=== PATIENT | male | born 1960 ===

== ENCOUNTER 2016-11-13 12:17 | Emergency (ER) | payer OTHER ==
[2016-11-13 12:18] VITALS: BMI 33.4
[2016-11-13 12:22] VITALS: BP 130/80; PULSE 79; TEMP 97.6; O2SAT 97
[2016-11-13 13:24] LABS: BASO # 0.1 K/uL (0.0-0.2); BASO % 1.3 % (0.0-2.0); EOS # 0.1 K/uL (0.0-0.7); EOS % 0.7 % (0.0-4.0); HEMATOCRIT 41.7 % (35.0-51.0); LYMPH # 2.5 K/uL (1.0-4.3); LYMPH % 31.7 % (20.0-40.0); MEAN CELL VOLUME 87.8 fl (80.0-94.0); MEAN CORPUSCULAR HEMOGLOBIN 30.3 pg (27.0-31.0); MEAN CORPUSCULAR HGB CONC 34.6 g/dL (33.0-37.0); MEAN PLATELET VOLUME 7.4 fl (7.2-11.7); MONO # 0.6 K/uL (0.0-0.8); MONO % 7.9 % (0.0-10.0); NEUT # 4.6 K/uL (1.8-7.0); NEUT % 58.4 % (50.0-75.0); NRBC % 0.1 % (0.0-0.0); RED CELL DISTRIBUTION WIDTH 13.7 % (11.5-14.5); WHITE BLOOD COUNT 7.9 K/uL (4.8-10.8)
[2016-11-13 13:49] LABS: PARTIAL THROMBOPLASTIN TIME 25.9 SECONDS (23.3-32.5)
[2016-11-13 13:52] LABS: ALKALINE PHOSPHATASE 99 U/L (38-126); ALT/SGPT 81 U/L (21-72); AST/SGOT 72 U/L (17-59); BILIRUBIN,TOTAL 0.7 mg/dl (0.2-1.3); BLOOD UREA NITROGEN 9 mg/dl (9-20); CALCIUM 9.5 mg/dL (8.4-10.2); CARBON DIOXIDE 26 mmol/L (22-30); CHLORIDE 104 mmol/L (98-107); GFR AFRICAN-AMERICAN > 60; GLUCOSE,RANDOM 94 mg/dL (75-110); SODIUM 144 mmol/l (132-148); TOTAL PROTEIN 7.7 G/DL (6.3-8.2)
--- NOTE | 2016-11-13 13:53 | ED PDOC ---
HPI: General Adult Time Seen by Provider: 11/13/16 12:19 Chief Complaint (Nursing): Abdominal Pain Chief Complaint (Provider): bloody stool History Per: Patient History/Exam Limitations: no limitations Onset/Duration Of Symptoms: Intermittent Episodes (ongoing for several years ) Have you had recent travel within the past 21 days to any of the following countries: [place], [place], [place] or [place]?: No Additional Complaint(s): Pt is a 56 year old male, with a previous medical history of hiatal hernia, cholecystectomy and hypercholesterolemia, who presents to the ED with complaints of blood in his stool ongoing for the past 2 days. Pt states this happens (blood in stool) every month a month for the past "several years" but resolves spontaneously after 1 day usually. Pt denies any nausea, vomiting, abdominal pain or fevers. Of note, pt reports having cholecystectomy done in August of 2016. 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 Pt with a hx of hemorrhoids and even had hemorrhoid surgery in 2002. PMD: Dr. Romero but is changing Past Medical History Reviewed: Historical Data, Nursing Documentation, Vital Signs Vital Signs: Last Vital Signs Temp 97.6 F 11/13/16 12:22 Pulse 79 11/13/16 12:22 Resp BP 130/80 11/13/16 12:22 Pulse Ox 97 11/13/16 14:32 - Medical History PMH: Back Problems, Gall Bladder Disease (Gallstones), Hiatal Hernia, Hypercholesterolemia Denies: Chronic Kidney Disease Other PMH: Hemorrohids - Surgical History Surgical History: Appendectomy, Cholecystectomy (August 2016), Hernia Repair ( inguinal) Other surgeries: Hemorrhoid surgery - Family History Family History: States: Other Other Family History: Leukemia - Social History Current smoker - smoking cessation education provided: No Alcohol: Social Drugs: Denies - Home Medications Home Medications: Ambulatory Orders Medication Instructions Recorded Docusate [Colace] 1 tab PO TID #90 cap 11/13/16 - Allergies Allergies/Adverse Reactions: Allergies Allergy/AdvReac Type Severity Reaction Status Date / Time No Known Allergies Allergy Verified 09/01/16 04:20 Review of Systems ROS Statement: Except As Marked, All Systems Reviewed And Found Negative Gastrointestinal: Positive for: Hematochezia. Negative for: Nausea, Vomiting, Abdominal Pain, Diarrhea, Rectal Pain Physical Exam - Reviewed Nursing Documentation Reviewed: Yes Vital Signs Reviewed: Yes - Physical Exam Appears: Positive for: Well, Non-toxic, No Acute Distress Head Exam: Positive for: ATRAUMATIC, NORMAL INSPECTION, NORMOCEPHALIC Skin: Positive for: Normal Color, Warm, Dry. Negative for: Pallor Eye Exam: Positive for: Normal appearance Neck: Positive for: Normal Cardiovascular/Chest: Positive for: Regular Rate, Rhythm Respiratory: Positive for: Normal Breath Sounds Gastrointestinal/Abdominal: Positive for: Normal Exam, Bowel Sounds, Soft. Negative for: Tenderness Back: Positive for: Normal Inspection Rectal: Positive for: Other (guaicc positive (control also positive)). Negative for: Hemorrhoids Extremity: Positive for: Normal ROM Neurologic/Psych: Positive for: Alert, Oriented. Negative for: Motor/Sensory Deficits - Laboratory Results Result Diagrams: 11/13/16 13:20 11/13/16 13:20 - ECG O2 Sat by Pulse Oximetry: 97 Medical Decision Making Medical Decision Making: Initial Impression: Rectal Bleeding (and hx of hemorrhoids) (in contrast to nursing, pt does not have RLQ pain) Likely from hemorrhoids; however, colon disease is a possibility too. Pt states he has a referral for a colonoscopy and states he will arrange for this soon. Initial Plan: Will check h/h to make sure blood loss not significant Scribe Attestation: Documented by Mally To, acting as a scribe for Wang Weber D.O. Provider Scribe Attestation: All medical record entries made by the Scribe were at my direction and personally dictated by me. I have reviewed the chart and agree that the record accurately reflects my personal performance of the history, physical exam, medical decision making, and the department course for this patient. I have also personally directed, reviewed, and agree with the discharge instructions and disposition. Disposition - Clinical Impression Clinical Impression: Rectal bleeding - Patient ED Disposition Is Patient to be Admitted: No Counseled Patient/Family Regarding: Studies Performed, Diagnosis, Need For Followup, Rx Given - Disposition Referrals: Gianfranco Caba MD [Staff Provider] - Disposition: Routine/Home Disposition Time: 14:09 Condition: STABLE Additional Instructions: Mr. Cordoba, thank you for letting us take care of you today. Return to the ER if your symptoms worsen, or if any problems. Take the medication listed below as prescribed. When you are having a bowel movement, do not sit on the toilet for too long. Drink lots of fluids (to help avoid constipation). You have a referral for a colonoscopy. It is extremely important that you get your colonoscopy. Your rectal bleeding may be due to hemorrhoids; however, the colonoscopy needs to be performed to make sure that the rectal bleeding is not from a more serious problem. Follow up with your doctor next week. If you are in a need of a new doctor, that is also fine--please call Dr. Gianfranco Caba at the phone number listed below to make an appointment. Prescriptions: Docusate [Colace] 1 tab PO TID #90 cap Instructions: Hemorrhoids (ED), Rectal Bleeding (ED) Print Language: AUSTRALIAN
[2016-11-13 14:16] LABS: RBC URINE < 1 /hpf (0-3); URINE BILIRUBIN NEGATIVE (NEGATIVE); URINE BLOOD NEGATIVE (NEGATIVE); URINE COLOR YELLOW (YELLOW); URINE GLUCOSE (UA) NEG (Normal); URINE KETONE NEGATIVE (NEGATIVE); URINE LEUKOCYTE ESTERASE NEG Leu/uL (Negative); URINE PROTEIN NEGATIVE (NEGATIVE); URINE UROBILINOGEN 0.2-1.0 mg/dL (0.2-1.0); WBC URINE < 1 /hpf (0-5)
== END 2016-11-13 14:27 | disposition home or self-care (01) ==
LOC: H.ER 12:17
DX: K64.9 Unspecified hemorrhoids (principal)

== ENCOUNTER 2017-03-14 16:07 | Emergency (ER) | payer OTHER ==
[2017-03-14 16:07] VITALS: BMI 33.4
[2017-03-14] MEDS ORDERED: Sodium Chloride 0.9% 1,000 ML IV STA (16:24)
[2017-03-14 16:57] LABS: BASO # 0.1 K/uL (0.0-0.2); BASO % 0.8 % (0.0-2.0); EOS % 0.1 % (0.0-4.0); HEMATOCRIT 42.4 % (35.0-51.0); LYMPH # 1.7 K/uL (1.0-4.3); LYMPH % 16.6 % (20.0-40.0); MEAN CELL VOLUME 88.3 fl (80.0-94.0); MEAN CORPUSCULAR HEMOGLOBIN 31.3 pg (27.0-31.0); MEAN CORPUSCULAR HGB CONC 35.4 g/dL (33.0-37.0); MEAN PLATELET VOLUME 7.6 fl (7.2-11.7); MONO # 0.8 K/uL (0.0-0.8); MONO % 7.2 % (0.0-10.0); NEUT # 7.9 K/uL (1.8-7.0); NEUT % 75.3 % (50.0-75.0); RED CELL DISTRIBUTION WIDTH 13.4 % (11.5-14.5); WHITE BLOOD COUNT 10.5 K/uL (4.8-10.8)
[2017-03-14 17:12] LABS: PARTIAL THROMBOPLASTIN TIME 31.1 Seconds (25.6-37.1)
[2017-03-14 17:13] LABS: ALB/GLOB RATIO 1.2 (1.0-2.1); ALCOHOL SERUM < 10 mg/dl (0-10); ALKALINE PHOSPHATASE 101 U/L (38-126); ALT/SGPT 78 U/L (21-72); AST/SGOT 50 U/L (17-59); BILIRUBIN,TOTAL 0.6 mg/dl (0.2-1.3); BLOOD UREA NITROGEN 6 mg/dl (9-20); CALCIUM 9.3 mg/dL (8.4-10.2); CARBON DIOXIDE 26 mmol/L (22-30); CHLORIDE 102 mmol/L (98-107); GFR AFRICAN-AMERICAN > 60; GLUCOSE,RANDOM 96 mg/dL (75-110); LIPASE 80 U/L (23-300); SODIUM 140 mmol/l (132-148); TOTAL PROTEIN 8.1 G/DL (6.3-8.2)
--- NOTE | 2017-03-14 17:21 | ED PDOC ---
HPI: Abdomen Time Seen by Provider: 03/14/17 16:16 Chief Complaint (Nursing): Abdominal Pain Chief Complaint (Provider): Abdominal pain History Per: Patient History/Exam Limitations: no limitations Onset/Duration Of Symptoms: Days (1) Outside of [place] travel?: No Current Symptoms Are (Timing): Still Present Additional Complaint(s): The patient is a 56yo male, presents to the ED for evaluation of right sided abdominal pain, present for one day with associated one episode of non-bloody vomiting. Patient states he drank 24 bottles of beer in the past two days. He denies any associated fever or diarrhea. Of note, patient has surgical history of cholecystectomy, appendectomy and an inguinal hernia. Also c/o R sided throat pain X 1 day, no difficulty swallowing, no SOB, no fever. Past Medical History Reviewed: Historical Data, Nursing Documentation, Vital Signs Vital Signs: Last Vital Signs Temp 99.0 F 03/14/17 16:11 Pulse 94 H 03/14/17 18:54 Resp 22 03/14/17 16:11 BP 142/100 H 03/14/17 16:11 Pulse Ox 99 03/14/17 18:54 - Medical History PMH: Back Problems, Gall Bladder Disease (Gallstones), Hiatal Hernia, Hypercholesterolemia Denies: Chronic Kidney Disease - Surgical History Surgical History: Appendectomy, Cholecystectomy (August 2016), Hernia Repair ( inguinal) - Family History Family History: States: Unknown Family Hx - Home Medications Home Medications: Ambulatory Orders Medication Instructions Recorded Docusate [Colace] 1 tab PO TID #90 cap 11/13/16 Azithromycin [Zithromax] 500 mg PO DAILY #4 tab 03/14/17 Ibuprofen [Motrin] 600 mg PO Q6H PRN #20 tab 03/14/17 Ondansetron ODT [Zofran ODT] 4 mg PO Q8H PRN #20 odt 03/14/17 - Allergies Allergies/Adverse Reactions: Allergies Allergy/AdvReac Type Severity Reaction Status Date / Time No Known Allergies Allergy Verified 09/01/16 04:20 Review of Systems ROS Statement: Except As Marked, All Systems Reviewed And Found Negative Constitutional: Negative for: Fever Gastrointestinal: Positive for: Nausea, Vomiting, Abdominal Pain. Negative for : Diarrhea Physical Exam - Reviewed Nursing Documentation Reviewed: Yes Vital Signs Reviewed: Yes - Physical Exam Appears: Positive for: Well, Non-toxic, No Acute Distress Head Exam: Positive for: ATRAUMATIC, NORMAL INSPECTION, NORMOCEPHALIC Skin: Positive for: Normal Color, Warm, DRY Eye Exam: Positive for: EOMI, Normal appearance, PERRL ENT: Positive for: Normal ENT Inspection, Pharynx Is (Clear), Pharyngeal Erythema, Tonsillar Exudate (R). Negative for: Nasal Congestion, Tonsillar Swelling Neck: Positive for: Normal, Supple Cardiovascular/Chest: Positive for: Regular Rate, Rhythm Respiratory: Positive for: Normal Breath Sounds. Negative for: Respiratory Distress Gastrointestinal/Abdominal: Positive for: Soft, Tenderness (right upper and lower quadrant tenderness). Negative for: Mass, Guarding, Rebound Back: Positive for: Normal Inspection Extremity: Positive for: Normal ROM. Negative for: Deformity, Swelling Neurologic/Psych: Positive for: Alert, Oriented. Negative for: Motor/Sensory Deficits - Laboratory Results Result Diagrams: 03/14/17 16:50 03/14/17 16:50 - ECG ECG: Positive for: Interpreted By Me, Viewed By Me ECG Rhythm: Positive for: Normal QRS, Sinus Rhythm. Negative for: ST/T Changes Rate: 94 O2 Sat by Pulse Oximetry: 99 (RA) Pulse Ox Interpretation: Normal Medical Decision Making Medical Decision Making: Time: 1624 Impression: Pancreatitis, colitis Plan: -- CT AP w/ IV contrast -- IV Fluids -- Morphine 2mg IV -- Zofran 4mg IV Reassess Time: 1843 CT AP IMPRESSION: No evidence of acute pathology in the abdomen and pelvis. Mild urinary bladder wall thickening. Patient reports improvement of his symptoms. Patient informed to follow up with PCP and to return to ED if symptoms return or new symptoms develop. Patient expresses understanding and is agreeable. Stable for discharge home. Scribe Attestation: Documented by Edna Pierce acting as a scribe for Mally Hernández MD. Provider Attestation: All medical record entries made by the Scribe were at my direction and personally dictated by me. I have reviewed the chart and agree that the record accurately reflects my personal performance of the history, physical exam, medical decision making, and the department course for this patient. I have also personally directed, reviewed, and agree with the discharge instructions and disposition. Disposition - Clinical Impression Clinical Impression: Abdominal pain, Pharyngitis Counseled Patient/Family Regarding: Studies Performed, Diagnosis, Need For Followup, Rx Given - Disposition Referrals: [facility] [place] [Outside] [facility] [Outside] Disposition: Routine/Home Disposition Time: 18:53 Condition: STABLE Prescriptions: Azithromycin [Zithromax] 500 mg PO DAILY #4 tab Ibuprofen [Motrin] 600 mg PO Q6H PRN #20 tab PRN Reason: Pain, Moderate (4-7) Ondansetron ODT [Zofran ODT] 4 mg PO Q8H PRN #20 odt PRN Reason: Nausea/Vomiting Instructions: Pharyngitis (ED), Acute Abdominal Pain (ED) Forms: [facility] (Kittitian) Print Language: GREENLANDIC
[2017-03-14 17:39] LABS: RBC URINE < 1 /hpf (0-3); URINE BILIRUBIN NEGATIVE (NEGATIVE); URINE BLOOD SMALL (NEGATIVE); URINE COLOR STRAW (YELLOW); URINE GLUCOSE (UA) NEG (Normal); URINE KETONE NEGATIVE (NEGATIVE); URINE LEUKOCYTE ESTERASE NEG Leu/uL (Negative); URINE PROTEIN NEGATIVE (NEGATIVE); URINE UROBILINOGEN 0.2-1.0 mg/dL (0.2-1.0); WBC URINE 1 /hpf (0-5)
[2017-03-14] MEDS ORDERED: Iohexol 300 100 ML IJ ONE (18:17)
[2017-03-14] MEDS ORDERED: Sodium Chloride 0.9% 50 ML IV ONE (18:17)
--- NOTE | 2017-03-14 18:45 | CT ---
PROCEDURE: CT Abdomen and Pelvis with contrast HISTORY: R sided abd pain, h/o cholecystectomy/appendectomy COMPARISON: Comparison is made to 09/01/2016 TECHNIQUE: Contrast dose: 95 cc of Omnipaque 300. Axial and reformatted coronal and sagittal CT images of the abdomen and pelvis were obtained after IV contrast administration. No oral contrast was given. Radiation dose: Total exam DLP = 1118.02 mGy-cm. This CT exam was performed using one or more of the following dose reduction techniques: Automated exposure control, adjustment of the mA and/or kV according to patient size, and/or use of iterative reconstruction technique. FINDINGS: LOWER THORAX: No evidence of acute pathology. Mild cardiomegaly. LIVER: Mild hepatomegaly and moderate steatosis are again seen. GALLBLADDER AND BILE DUCTS: Status post cholecystectomy. PANCREAS: Unremarkable. No gross lesion or ductal dilatation. SPLEEN: Unremarkable. ADRENALS: Unremarkable. No mass. KIDNEYS AND URETERS: Unremarkable. No hydronephrosis. No solid mass. VASCULATURE: Unremarkable. No aortic aneurysm. BOWEL: Unremarkable. No obstruction. No gross mural thickening. Few scattered colonic diverticulosis seen without evidence of diverticulitis. APPENDIX: The appendix is not visualized consistent with history of appendix HANNAH. PERITONEUM: Unremarkable. No free fluid. No free air. LYMPH NODES: Unremarkable. No enlarged lymph nodes. BLADDER: Mild urinary bladder wall thickening. REPRODUCTIVE: Unremarkable. BONES: No acute fracture. OTHER FINDINGS: None. IMPRESSION: No evidence of acute pathology in the abdomen and pelvis. Mild urinary bladder wall thickening.
[2017-03-14 19:15] VITALS: BP 132/74; PULSE 83; RESP 19; TEMP 98.3; O2SAT 98
--- NOTE | 2017-03-15 11:26 | CARD ---
APPROVED REPORT EKG Measurement Heart [id number] <Conclusion> Normal sinus rhythm Normal ECG
== END 2017-03-14 19:14 | disposition home or self-care (01) ==
LOC: H.ER 16:07
DX: R10.9 Unspecified abdominal pain (principal); J02.9 Acute pharyngitis, unspecified
CPT/HCPCS: 74177; 80053; 80320; 81003; 83690; 85025; 85610; 85730; 93005; 96374; 96375; 99284; J2270; J2405; J7040; Q9967

== ENCOUNTER 2017-07-15 05:36 | Emergency (ER) | payer OTHER ==
[2017-07-15 05:36] VITALS: BMI 34.3
[2017-07-15 05:49] VITALS: BP 119/88; PULSE 71; RESP 18; TEMP 98; O2SAT 98
--- NOTE | 2017-07-15 06:11 | ED PDOC ---
HPI: Skin/Bite Injury Time Seen by Provider: 07/15/17 05:53 Chief Complaint (Nursing): Abnormal Skin Integrity Chief Complaint (Provider): Abnormal Skin Integrity History Per: Patient History/Exam Limitations: no limitations Onset/Duration Of Symptoms: Days (x1) Current Symptoms Are (Timing): Still Present Additional Complaint(s): 56 year old male who presents to the emergency department with a complaint of generalized itchy skin ongoing for 1 day. Denied any further medical complaints. Patient stated he had been using Benadryl with little relief symptoms. PMD: Elizabeth Sanchez MD Past Medical History Reviewed: Historical Data, Nursing Documentation, Vital Signs Vital Signs: Last Vital Signs Temp 98.0 F 07/15/17 05:45 Pulse 71 07/15/17 05:45 Resp 18 07/15/17 05:45 BP 119/88 07/15/17 05:45 Pulse Ox 98 07/15/17 06:13 - Medical History PMH: Back Problems, Gall Bladder Disease (Gallstones), Hiatal Hernia, Hypercholesterolemia Denies: Chronic Kidney Disease - Surgical History Surgical History: Appendectomy, Cholecystectomy (August 2016), Hernia Repair ( inguinal) - Family History Family History: States: Unknown Family Hx - Home Medications Home Medications: Ambulatory Orders Medication Instructions Recorded Docusate [Colace] 1 tab PO TID #90 cap 11/13/16 Azithromycin [Zithromax] 500 mg PO DAILY #4 tab 03/14/17 Ibuprofen [Motrin] 600 mg PO Q6H PRN #20 tab 03/14/17 Ondansetron ODT [Zofran ODT] 4 mg PO Q8H PRN #20 odt 03/14/17 Menthol/Colloidal Oatmeal [Eucerin 200 ml TP BID #1 lotion 07/15/17 Calm Itch-Relief Lot] - Allergies Allergies/Adverse Reactions: Allergies Allergy/AdvReac Type Severity Reaction Status Date / Time No Known Allergies Allergy Verified 07/15/17 05:45 Review of Systems ROS Statement: Except As Marked, All Systems Reviewed And Found Negative Skin: Positive for: Other (diffuse; dry) Physical Exam - Reviewed Nursing Documentation Reviewed: Yes Vital Signs Reviewed: Yes - Physical Exam Appears: Positive for: Well, Non-toxic, No Acute Distress Head Exam: Positive for: ATRAUMATIC, NORMAL INSPECTION, NORMOCEPHALIC Skin: Positive for: Dry ([place]/back. no moisture noted). Negative for: Normal Color Cardiovascular/Chest: Positive for: Regular Rate, Rhythm, Chest Non Tender Respiratory: Positive for: Normal Breath Sounds. Negative for: Decreased Breath Sounds, Respiratory Distress Neurologic/Psych: Positive for: Alert (x3), Oriented - ECG O2 Sat by Pulse Oximetry: 98 (RA) Pulse Ox Interpretation: Normal Medical Decision Making Medical Decision Making: Initial Impression: Dry skin Scribe Attestation: Documented by Silvia Kwon, acting as a scribe for Desmond Gabriel MD. Provider Scribe Attestation: All medical record entries made by the Scribe were at my direction and personally dictated by me. I have reviewed the chart and agree that the record accurately reflects my personal performance of the history, physical exam, medical decision making, and the department course for this patient. I have also personally directed, reviewed, and agree with the discharge instructions and disposition. Disposition - Clinical Impression Clinical Impression: Dry skin - Disposition Referrals: [facility] [Outside] Disposition Time: 06:00 Condition: STABLE Prescriptions: Menthol/Colloidal Oatmeal [Eucerin Calm Itch-Relief Lot] 200 ml TP BID #1 lotion Instructions: Dermatitis (ED) Forms: [facility] ([place] Citizen) Print Language: BENINESE
== END 2017-07-15 06:00 | disposition home or self-care (01) ==
LOC: H.ER 05:36
DX: L30.9 Dermatitis, unspecified (principal); E78.00 Pure hypercholesterolemia, unspecified

== ENCOUNTER 2017-08-05 08:32 | Emergency (ER) | payer OTHER ==
[2017-08-05 09:07] VITALS: BP 126/81; PULSE 72; RESP 18; TEMP 98.9; O2SAT 99
[2017-08-05 09:10] VITALS: BMI 34.2
[2017-08-05] MEDS ORDERED: Promethazine/Cod 6.25mg-10mg/5ml Syr UD PO STA (09:34)
--- NOTE | 2017-08-05 09:50 | ED PDOC ---
HPI: CCC, URI, Sore Throat Time Seen by Provider: 08/05/17 09:04 Chief Complaint (Nursing): Flu-like Symptoms Chief Complaint (Provider): Flu-like Symptoms History Per: Patient History/Exam Limitations: no limitations Onset/Duration Of Symptoms: Days (3 days) Current Symptoms Are (Timing): Still Present Additional Complaint(s): 56 year old male presents to the emergency department with a complaint of a fever, cough, body aches, and congestion x3 days. States that he cannot sleep at night. Reports taking Theraflu, Aleve, and Robitussin without relief. Denies vomiting, diarrhea, or chest pain. Past Medical History Reviewed: Historical Data, Nursing Documentation, Vital Signs Vital Signs: Last Vital Signs Temp 98.9 F 08/05/17 09:06 Pulse 72 08/05/17 09:06 Resp 18 08/05/17 09:06 BP 126/81 08/05/17 09:06 Pulse Ox 99 08/05/17 09:52 - Medical History PMH: Back Problems, Gall Bladder Disease (Gallstones), Hiatal Hernia, Hypercholesterolemia Denies: Chronic Kidney Disease - Surgical History Surgical History: Appendectomy, Cholecystectomy (August 2016), Hernia Repair ( inguinal) - Family History Family History: States: Unknown Family Hx - Living Arrangements Living Arrangements: With Family - Social History Current smoker - smoking cessation education provided: No Alcohol: None Drugs: Denies - Home Medications Home Medications: Ambulatory Orders Medication Instructions Recorded Diphenhydra/Phenyleph/Acetamin 1 packet PO DAILY 08/03/17 [Theraflu Expressmax Cold Nt Lq] Azithromycin [Z-Saroj] 250 mg PO ASDIR #6 tab 08/05/17 Benzonatate [Tessalon Perles] 100 mg PO TID PRN #15 sgl 08/05/17 Oseltamivir [Tamiflu] 75 mg PO BID #10 cap 08/05/17 - Allergies Allergies/Adverse Reactions: Allergies Allergy/AdvReac Type Severity Reaction Status Date / Time No Known Allergies Allergy Verified 08/03/17 10:20 Review of Systems ROS Statement: Except As Marked, All Systems Reviewed And Found Negative (As per HPI, otherwise negative) Constitutional: Positive for: Fever, Other (Body aches) ENT: Positive for: Nose Congestion Cardiovascular: Negative for: Chest Pain Respiratory: Positive for: Cough. Negative for: Shortness of Breath Gastrointestinal: Negative for: Vomiting, Diarrhea Physical Exam - Reviewed Nursing Documentation Reviewed: Yes Vital Signs Reviewed: Yes - Physical Exam Appears: Positive for: Non-toxic, No Acute Distress Head Exam: Positive for: NORMAL INSPECTION, NORMOCEPHALIC Skin: Positive for: Normal Color, Warm, Dry Eye Exam: Positive for: EOMI ENT: Positive for: Normal ENT Inspection Cardiovascular/Chest: Positive for: Regular Rate, Rhythm. Negative for: Bradycardia Respiratory: Positive for: Normal Breath Sounds. Negative for: Accessory Muscle Use, Wheezing, Respiratory Distress Gastrointestinal/Abdominal: Positive for: Normal Exam, Soft. Negative for: Tenderness Back: Positive for: Normal Inspection. Negative for: L CVA Tenderness, R CVA Tenderness Extremity: Positive for: Normal ROM. Negative for: Pedal Edema Neurologic/Psych: Positive for: Alert, Oriented (x3) - ECG O2 Sat by Pulse Oximetry: 99 (RA) Pulse Ox Interpretation: Normal - Radiology X-Ray: Interpreted by Me, Viewed By Me X-Ray Interpretation: Infiltrates (?) Medical Decision Making Medical Decision Making: Time: 933 Initial Impression: Upper respiratory infection (URI) rule out pneumonia Initial Plan: --Toradol 30 mg IM --Promethazine/Codeine 5 ml PO --Influenza A B --Chest x-ray --Reevaluation Scribe~Attestation: Documented by Delaney Matias, acting as a scribe for Malik Bermudez MD. Provider Scribe~Attestation: All medical record entries made by the Scribe were at my direction and personally dictated by me. I have reviewed the chart and agree that the record accurately reflects my personal performance of the history, physical exam, medical decision making, and the department course for this patient. I have also personally directed, reviewed, and agree with the discharge instructions and disposition. Disposition - Clinical Impression Clinical Impression: Influenza, Bronchitis - Patient ED Disposition Is Patient to be Admitted: No Doctor Will See Patient In The: Office Counseled Patient/Family Regarding: Studies Performed, Diagnosis, Need For Followup - Disposition Referrals: [facility] [Outside] Disposition: Routine/Home Disposition Time: 11:41 Condition: GOOD Additional Instructions: Take your medications as instructed. Follow up with your PCP in 2-3 days. Prescriptions: Azithromycin [Z-Saroj] 250 mg PO ASDIR #6 tab Benzonatate [Tessalon Perles] 100 mg PO TID PRN #15 sgl PRN Reason: Cough Oseltamivir [Tamiflu] 75 mg PO BID #10 cap Instructions: Influenza (ED) Print Language: YORUBA
--- NOTE | 2017-08-05 14:39 | RAD ---
HISTORY: fever cough COMPARISON: I fatou TECHNIQUE: Chest PA and lateral FINDINGS: LUNGS: No active pulmonary disease. PLEURA: No significant pleural effusion identified. No pneumothorax apparent. CARDIOVASCULAR: Normal. OSSEOUS STRUCTURES: No significant abnormalities. VISUALIZED UPPER ABDOMEN: Normal. OTHER FINDINGS: Enlargement of the left hilum best seen on the PA view. Elective followup recommended. IMPRESSION: No active pulmonary disease. Enlarged left hilum. Elective followup recommended. Notification protocol employed per institutional policies and procedures.
== END 2017-08-05 11:53 | disposition home or self-care (01) ==
LOC: H.ER 08:32 → SUPCPDRO 08:32 → H.ER 11:53
DX: J11.1 Influenza due to unidentified influenza virus with other respiratory manifestations (principal); J40 Bronchitis, not specified as acute or chronic; E78.00 Pure hypercholesterolemia, unspecified
CPT/HCPCS: 71046; 87804; 96372; 99283; J1885

== ENCOUNTER 2017-08-28 07:04 | Emergency (ER) | payer OTHER ==
[2017-08-28 07:04] VITALS: BMI 34.2
[2017-08-28 07:31] VITALS: RESP 18; TEMP 98; O2SAT 98
--- NOTE | 2017-08-28 08:04 | ED PDOC ---
HPI: Back Time Seen by Provider: 08/28/17 07:27 Chief Complaint (Nursing): Back Pain Chief Complaint (Provider): Back Pain History Per: Patient History/Exam Limitations: no limitations Onset/Duration Of Symptoms: Days (x 1) Current Symptoms Are (Timing): Still Present Additional History Per: Family () Additional Complaint(s): Yobani is a 57 y/o male with a history of back problems who presents to the ED complaining of back pain that started yesterday. He denies injury or trauma, and says walking makes it tighter. He took Aleve at 6:00 today with no relief. Patient denies any other symptoms, including nausea, vomiting, fever, chills, or urinary symptoms. 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 PMD: None Provided Past Medical History Reviewed: Historical Data, Nursing Documentation, Vital Signs Vital Signs: Last Vital Signs Temp 98 F 08/28/17 07:27 Pulse 79 08/28/17 07:27 Resp 18 08/28/17 07:27 BP 129/75 08/28/17 07:27 Pulse Ox 98 08/28/17 07:27 - Medical History PMH: Back Problems, Gall Bladder Disease (Gallstones), Hiatal Hernia, Hypercholesterolemia Denies: Chronic Kidney Disease - Surgical History Surgical History: Appendectomy, Cholecystectomy (August 2016), Hernia Repair ( inguinal) - Family History Family History: States: Unknown Family Hx - Home Medications Home Medications: Ambulatory Orders Medication Instructions Recorded Diphenhydra/Phenyleph/Acetamin 1 packet PO DAILY 08/03/17 [Theraflu Expressmax Cold Nt Lq] Azithromycin [Z-Saroj] 250 mg PO ASDIR #6 tab 08/05/17 Benzonatate [Tessalon Perles] 100 mg PO TID PRN #15 sgl 08/05/17 Oseltamivir [Tamiflu] 75 mg PO BID #10 cap 08/05/17 Cyclobenzaprine [Cyclobenzaprine 10 mg PO TID #15 tab 08/28/17 HCl] Naproxen [Naprosyn] 500 mg PO BID PRN #20 tablet 08/28/17 - Allergies Allergies/Adverse Reactions: Allergies Allergy/AdvReac Type Severity Reaction Status Date / Time No Known Allergies Allergy Verified 08/03/17 10:20 Review of Systems ROS Statement: Except As Marked, All Systems Reviewed And Found Negative Constitutional: Negative for: Fever, Chills Gastrointestinal: Negative for: Nausea, Vomiting Genitourinary Male: Negative for: Dysuria, Frequency, Incontinence, Hematuria Musculoskeletal: Positive for: Back Pain Physical Exam - Reviewed Nursing Documentation Reviewed: Yes Vital Signs Reviewed: Yes - Physical Exam Appears: Positive for: Well, Non-toxic, No Acute Distress Head Exam: Positive for: ATRAUMATIC, NORMAL INSPECTION, NORMOCEPHALIC Skin: Positive for: Normal Color, Warm, Dry Neck: Positive for: Normal, Painless ROM, Supple Cardiovascular/Chest: Positive for: Regular Rate, Rhythm. Negative for: Murmur Respiratory: Positive for: Normal Breath Sounds. Negative for: Respiratory Distress Gastrointestinal/Abdominal: Positive for: Normal Exam, Bowel Sounds, Soft. Negative for: Tenderness Back: Positive for: Normal Inspection. Negative for: Other (straight leg raise) Extremity: Positive for: Normal ROM Neurologic/Psych: Positive for: Alert, Oriented - ECG O2 Sat by Pulse Oximetry: 98 (RA) Pulse Ox Interpretation: Normal Medical Decision Making Medical Decision Making: Time: 7:50 Initial Impression: Chronic Back Pain Initial Plan: --Urine Dip --Flexoril --Toradol Time: 8:55 --Urinalysis Scribe Attestation: Documented by Christopher Glass, acting as a scribe for Kimbelry Teresa MD Provider Scribe Attestation: All medical record entries made by the Scribe were at my direction and personally dictated by me. I have reviewed the chart and agree that the record accurately reflects my personal performance of the history, physical exam, medical decision making, and the department course for this patient. I have also personally directed, reviewed, and agree with the discharge instructions and disposition. Disposition - Clinical Impression Clinical Impression: Muscle spasm of back - Disposition Referrals: [facility] [place] [facility] [Outside] [facility] [Outside] [facility] [Outside] Disposition: Routine/Home Disposition Time: 10:47 Condition: STABLE Prescriptions: Cyclobenzaprine [Cyclobenzaprine HCl] 10 mg PO TID #15 tab Naproxen [Naprosyn] 500 mg PO BID PRN #20 tablet PRN Reason: Pain, Moderate (4-7) Instructions: Muscle Spasm (ED) Forms: [employer] (Estonian), [facility] ED School/Work Excuse Print Language: AUSTRIAN - POA Present On Arrival: None
[2017-08-28 10:14] LABS: SQUAMOUS EPITHIAL < 1 /hpf (0-5); URINE BACTERIA RARE (<OCC); URINE BILIRUBIN NEGATIVE (NEGATIVE); URINE BLOOD NEGATIVE (NEGATIVE); URINE CLARITY CLOUDY (Clear); URINE COLOR YELLOW (YELLOW); URINE GLUCOSE (UA) NEG (Normal); URINE HYALINE CAST 0-2 /hpf (0-2); URINE LEUKOCYTE ESTERASE NEG Leu/uL (Negative); URINE NITRATE NEGATIVE (NEGATIVE); URINE PROTEIN 30 mg/dL (NEGATIVE)
[2017-08-28 10:59] VITALS: BP 128/78; PULSE 80
== END 2017-08-28 10:59 | disposition home or self-care (01) ==
LOC: H.ER 07:04
DX: M62.830 Muscle spasm of back (principal); E78.00 Pure hypercholesterolemia, unspecified
CPT/HCPCS: 81003; 96372; 99281; J1885

== ENCOUNTER 2017-09-25 07:31 | Emergency (ER) | payer MEDICAID, OTHER ==
[2017-09-25 07:31] VITALS: BMI 34.2
[2017-09-25 07:52] VITALS: BP 133/85; PULSE 74; RESP 20; TEMP 98; O2SAT 98
--- NOTE | 2017-09-25 08:07 | ED PDOC ---
HPI: General Adult Time Seen by Provider: 09/25/17 07:36 Chief Complaint (Nursing): ENT Problem Chief Complaint (Provider): Ear decreased hearing History Per: Patient History/Exam Limitations: no limitations Onset/Duration Of Symptoms: Days (2) Current Symptoms Are (Timing): Still Present Additional Complaint(s): Pt. with decreased hearing for 2 days from right ear. No pain. Has pain to the back of lower right head, mild. No numbness, tingles, weakness, dizziness, cough, congestion, runny nose. No fever. No dyspnea. No issues to left ear. Headache not worst in his life and started gradually. Past Medical History Reviewed: Nursing Documentation, Vital Signs Vital Signs: Last Vital Signs Temp 98 F 09/25/17 07:48 Pulse 74 09/25/17 07:48 Resp 20 09/25/17 07:48 BP 133/85 09/25/17 07:48 Pulse Ox 98 09/25/17 07:48 - Medical History PMH: No Chronic Diseases Denies: Chronic Kidney Disease - Surgical History Surgical History: Appendectomy, Cholecystectomy (August 2016), Hernia Repair ( inguinal) - Family History Family History: States: Unknown Family Hx - Home Medications Home Medications: Ambulatory Orders Medication Instructions Recorded Diphenhydra/Phenyleph/Acetamin 1 packet PO DAILY 08/03/17 [Theraflu Expressmax Cold Nt Lq] Azithromycin [Z-Saroj] 250 mg PO ASDIR #6 tab 08/05/17 Benzonatate [Tessalon Perles] 100 mg PO TID PRN #15 sgl 08/05/17 Oseltamivir [Tamiflu] 75 mg PO BID #10 cap 08/05/17 Cyclobenzaprine [Cyclobenzaprine 10 mg PO TID #15 tab 08/28/17 HCl] Naproxen [Naprosyn] 500 mg PO BID PRN #20 tablet 08/28/17 Amoxicillin 500 mg PO BID 7 Days tablet 09/25/17 Ibuprofen [Motrin] 600 mg PO TID 7 Days tab 09/25/17 - Allergies Allergies/Adverse Reactions: Allergies Allergy/AdvReac Type Severity Reaction Status Date / Time No Known Allergies Allergy Verified 09/25/17 07:48 Review of Systems Constitutional: Negative for: Fever, Weakness Eyes: Negative for: Vision Change ENT: Negative for: Ear Pain, Ear Discharge, Nose Pain, Nose Discharge, Nose Congestion, Mouth Pain, Mouth Swelling, Throat Pain Cardiovascular: Negative for: Chest Pain Respiratory: Negative for: Shortness of Breath Gastrointestinal: Negative for: Nausea, Vomiting Musculoskeletal: Negative for: Neck Pain Skin: Negative for: Rash Neurological: Positive for: Headache. Negative for: Weakness, Numbness, Confusion, Altered Mental Status, Dizziness Physical Exam - Reviewed Nursing Documentation Reviewed: Yes Vital Signs Reviewed: Yes - Physical Exam Appears: Positive for: Non-toxic, No Acute Distress Head Exam: Positive for: ATRAUMATIC, NORMAL INSPECTION, NORMOCEPHALIC Skin: Positive for: Normal Color, Warm, DRY Eye Exam: Positive for: EOMI, Normal appearance, PERRL ENT: Positive for: TM Is/Are (mild erythema on R TM; no perforation), Other (no tenderness to mastoids or behind ear R; no swelling.). Negative for: Nasal Congestion, Pharyngeal Erythema, Tonsillar Exudate Neck: Positive for: Normal, Painless ROM Cardiovascular/Chest: Positive for: Regular Rate, Rhythm Respiratory: Positive for: CNT, Normal Breath Sounds Back: Positive for: Normal Inspection. Negative for: L CVA Tenderness, R CVA Tenderness Extremity: Positive for: Normal ROM. 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 Negative for: Facial Droop - ECG O2 Sat by Pulse Oximetry: 98 Pulse Ox Interpretation: Normal - Progress ED Course And Treament: 809: Stable. AAOx3. Will rx for ear infection. Pt. to fu with ENT further evaluation. Disposition - Clinical Impression Clinical Impression: Otitis media - Patient ED Disposition Is Patient to be Admitted: No Counseled Patient/Family Regarding: Diagnosis, Need For Followup, Rx Given - Disposition Referrals: Omero Hayes MD [Staff Provider] - 09/27/17 formerly [facility] [Outside] - 09/27/17 Disposition: Routine/Home Disposition Time: 08:11 Condition: STABLE Additional Instructions: Return if not better in 3 days. Prescriptions: Amoxicillin 500 mg PO BID 7 Days tablet Ibuprofen [Motrin] 600 mg PO TID 7 Days tab Instructions: Ear Infections (Otitis Media) Print Language: MALAY
== END 2017-09-25 08:44 | disposition home or self-care (01) ==
LOC: H.ER 07:31
DX: H66.91 Otitis media, unspecified, right ear (principal)

== ENCOUNTER 2017-09-29 11:32 | Emergency (ER) | payer MEDICAID ==
[2017-09-29 11:32] VITALS: BMI 34.2
[2017-09-29 11:56] VITALS: RESP 18; O2SAT 100
[2017-09-29] MEDS ORDERED: Sodium Chloride 0.9% 1,000 ML IV STA (12:58)
--- NOTE | 2017-09-29 13:34 | ED PDOC ---
HPI: General Adult Time Seen by Provider: 09/29/17 11:58 Chief Complaint (Nursing): Headache History Per: Patient Additional Complaint(s): Pt. states for the past 2 weeks he's had a constant gradual onset R occipital headache. States initially headache was associated with R ear pain and hearing changes. He was seen in ED at the onset of symptoms and prescribed Amoxicillin and Ibuprofen which resolved earache and hearing changes but headache persists. Denies head injury, N/V, fever, neck pain, numbness, tingling, sudden onset of headache, hx of headaches. Past Medical History Reviewed: Historical Data, Nursing Documentation, Vital Signs Vital Signs: Last Vital Signs Temp 97 F L 09/29/17 11:54 Pulse 79 09/29/17 11:54 Resp 18 09/29/17 11:54 BP 125/84 09/29/17 11:54 Pulse Ox 100 09/29/17 13:35 - Medical History PMH: Back Problems, Gall Bladder Disease (Gallstones), Hiatal Hernia, Hypercholesterolemia Denies: Chronic Kidney Disease - Surgical History Surgical History: Appendectomy, Cholecystectomy (August 2016), Hernia Repair ( inguinal) - Family History Family History: States: No Known Family Hx - Home Medications Home Medications: Ambulatory Orders Medication Instructions Recorded Diphenhydra/Phenyleph/Acetamin 1 packet PO DAILY 08/03/17 [Theraflu Expressmax Cold Nt Lq] Azithromycin [Z-Saroj] 250 mg PO ASDIR #6 tab 08/05/17 Benzonatate [Tessalon Perles] 100 mg PO TID PRN #15 sgl 08/05/17 Oseltamivir [Tamiflu] 75 mg PO BID #10 cap 08/05/17 Cyclobenzaprine [Cyclobenzaprine 10 mg PO TID #15 tab 08/28/17 HCl] Naproxen [Naprosyn] 500 mg PO BID PRN #20 tablet 08/28/17 Amoxicillin 500 mg PO BID 7 Days tablet 09/25/17 Ibuprofen [Motrin] 600 mg PO TID 7 Days tab 09/25/17 Metoclopramide [Reglan] 10 mg PO TID PRN #15 tab 09/29/17 Naproxen [Naprosyn] 500 mg PO BID PRN #10 tab 09/29/17 - Allergies Allergies/Adverse Reactions: Allergies Allergy/AdvReac Type Severity Reaction Status Date / Time No Known Allergies Allergy Verified 09/25/17 07:48 Review of Systems ROS Statement: Except As Marked, All Systems Reviewed And Found Negative Neurological: Positive for: Headache Physical Exam - Physical Exam Appears: Positive for: Well, Non-toxic, No Acute Distress Head Exam: Positive for: ATRAUMATIC, NORMAL INSPECTION, NORMOCEPHALIC Skin: Positive for: Normal Color, Warm. Negative for: Rash Eye Exam: Positive for: EOMI, Normal appearance, PERRL ENT: Positive for: Normal ENT Inspection, TM Is/Are (WNL b/l), Hearing Is ( grossly intact), Other (no mastoid tenderness or swelling b/l) Neck: Positive for: Normal, Painless ROM Cardiovascular/Chest: Positive for: Regular Rate, Rhythm Respiratory: Positive for: CNT, Normal Breath Sounds Gastrointestinal/Abdominal: Positive for: Normal Exam, Bowel Sounds, Soft. Negative for: Tenderness Back: Positive for: Normal Inspection. Negative for: L CVA Tenderness, R CVA Tenderness Extremity: Positive for: Normal ROM Neurologic/Psych: Positive for: Alert, Oriented. Negative for: Aphasia, Facial Droop - Laboratory Results Result Diagrams: 09/29/17 13:24 09/29/17 13:24 - ECG O2 Sat by Pulse Oximetry: 100 - Progress ED Course And Treament: Labs, CT head w/o contrast, toradol 30mg IV, reglan 10mg IV, IV NS bolus x [address] head w/o contrast: negative On re-evaluation, pt. reports feeling better. Headache has resolved. Repeat neuro exam is non-focal. Disposition - Clinical Impression Clinical Impression: Acute headache - Patient ED Disposition Is Patient to be Admitted: No - Disposition Referrals: [facility] [Outside] Disposition: Routine/Home Disposition Time: 14:20 Condition: IMPROVED Prescriptions: Metoclopramide [Reglan] 10 mg PO TID PRN #15 tab PRN Reason: headache or nausea Naproxen [Naprosyn] 500 mg PO BID PRN #10 tab PRN Reason: Pain Instructions: Acute Headache (ED) Forms: [employer] (Tajik) Print Language: MACEDONIAN
[2017-09-29 13:35] LABS: BASO # 0.1 K/uL (0.0-0.2); BASO % 0.7 % (0.0-2.0); EOS % 0.3 % (0.0-4.0); LYMPH # 2.3 K/uL (1.0-4.3); MEAN CELL VOLUME 87.9 fl (80.0-94.0); MEAN CORPUSCULAR HEMOGLOBIN 30.7 pg (27.0-31.0); MEAN PLATELET VOLUME 7.4 fl (7.2-11.7); MONO # 0.6 K/uL (0.0-0.8); NEUT # 5.3 K/uL (1.8-7.0); NRBC % 0.1 % (0.0-0.0); RBC 4.88 Mil/uL (4.40-5.90); RED CELL DISTRIBUTION WIDTH 13.7 % (11.5-14.5); WHITE BLOOD COUNT 8.4 K/uL (4.8-10.8)
[2017-09-29 13:42] LABS: ALB/GLOB RATIO 1.2 (1.0-2.1); ALBUMIN 4.2 g/dL (3.5-5.0); ALT/SGPT 231 U/L (21-72); AST/SGOT 111 U/L (17-59); BLOOD UREA NITROGEN 13 mg/dl (9-20); CALCIUM 9.3 mg/dL (8.4-10.2); GFR AFRICAN-AMERICAN > 60; GFR NON-AFRICAN AMERICAN > 60
--- NOTE | 2017-09-29 14:13 | CT ---
PROCEDURE: CT HEAD WITHOUT CONTRAST. HISTORY: headache COMPARISON: None available. TECHNIQUE: Axial computed tomography images were obtained through the head/brain without intravenous contrast. Radiation dose: Total exam DLP = 945.6 mGy-cm. This CT exam was performed using one or more of the following dose reduction techniques: Automated exposure control, adjustment of the mA and/or kV according to patient size, and/or use of iterative reconstruction technique. FINDINGS: HEMORRHAGE: No intracranial hemorrhage. BRAIN: No mass effect or edema. No atrophy or chronic microvascular ischemic changes. VENTRICLES: Unremarkable. No hydrocephalus. CALVARIUM: Unremarkable. PARANASAL SINUSES: Unremarkable as visualized. No significant inflammatory changes. MASTOID AIR CELLS: Unremarkable as visualized. No inflammatory changes. OTHER FINDINGS: None. IMPRESSION: No acute intracranial pathology.
[2017-09-29 15:49] VITALS: BP 125/89; PULSE 69; TEMP 97.8
== END 2017-09-29 15:49 | disposition home or self-care (01) ==
LOC: H.ER 11:32
DX: R51 Headache (principal); E78.00 Pure hypercholesterolemia, unspecified
CPT/HCPCS: 70450; 80053; 85025; 96361; 96374; 96375; 99282; J1885; J2765; J7040

== ENCOUNTER 2017-12-14 10:04 | Emergency (ER) | payer OTHER ==
[2017-12-14 10:07] VITALS: BMI 35.7
[2017-12-14 10:10] VITALS: BP 125/83; PULSE 78; RESP 20; TEMP 98.3; O2SAT 99
--- NOTE | 2017-12-14 11:03 | ED PDOC ---
Lower Extremity Pain/Injury Time Seen by Provider: 12/14/17 11:02 Chief Complaint (Nursing): Lower Extremity Problem/Injury Chief Complaint (Provider): ankle pain and swelling History Per: Patient Additional Complaint(s): 57-year-old male presents with pain and swelling to right ankle. Patient states a few days ago he started exercising and since then has noticed pain and swelling. He is able to walk and bear weight pain when doing so. Aleve does help the pain when taken. PMD: Dr. Mir Past Medical History Reviewed: Historical Data, Nursing Documentation, Vital Signs Vital Signs: Last Vital Signs Temp 98.3 F 12/14/17 10:07 Pulse 78 12/14/17 10:07 Resp 20 12/14/17 10:07 BP 125/83 12/14/17 10:07 Pulse Ox 99 12/14/17 10:07 - Medical History PMH: Back Problems, Hypercholesterolemia - Surgical History Surgical History: Appendectomy, Cholecystectomy (August 2016), Hernia Repair ( inguinal) Other surgeries: hemorrhoidectomy - Family History Family History: States: No Known Family Hx - Living Arrangements Living Arrangements: With Family - Social History Current smoker - smoking cessation education provided: No Alcohol: Social Drugs: Denies - Home Medications Home Medications: Ambulatory Orders Medication Instructions Recorded Diphenhydra/Phenyleph/Acetamin 1 packet PO DAILY 08/03/17 [Theraflu Expressmax Cold Nt Lq] Azithromycin [Z-Saroj] 250 mg PO ASDIR #6 tab 08/05/17 Benzonatate [Tessalon Perles] 100 mg PO TID PRN #15 sgl 08/05/17 Oseltamivir [Tamiflu] 75 mg PO BID #10 cap 08/05/17 Cyclobenzaprine [Cyclobenzaprine 10 mg PO TID #15 tab 08/28/17 HCl] Naproxen [Naprosyn] 500 mg PO BID PRN #20 tablet 08/28/17 Amoxicillin 500 mg PO BID 7 Days tablet 09/25/17 Ibuprofen [Motrin] 600 mg PO TID 7 Days tab 09/25/17 Metoclopramide [Reglan] 10 mg PO TID PRN #15 tab 09/29/17 Naproxen [Naprosyn] 500 mg PO BID PRN #10 tab 09/29/17 - Allergies Allergies/Adverse Reactions: Allergies Allergy/AdvReac Type Severity Reaction Status Date / Time No Known Allergies Allergy Verified 09/25/17 07:48 Wells Criteria for PE - Wells Criteria for Pulmonary Embolism Clinical Signs and Symptoms of DVT: No P.E is #1 Diagnosis, or Equally Likely: No Heart Rate >100: No Immobilization at least 3 days;Surgery previous 4 weeks: No Previous, objectively diagnosed PE or DVT: No Hemoptysis: No Malignancy w/treatment within 6 months, or palliative: No Total Score: 0 Review of Systems ROS Statement: Except As Marked, All Systems Reviewed And Found Negative Musculoskeletal: Positive for: Other (right ankle pain) Physical Exam - Reviewed Nursing Documentation Reviewed: Yes Vital Signs Reviewed: Yes - Physical Exam Appears: Positive for: Well, Non-toxic, No Acute Distress Skin: Negative for: Rash Eye Exam: Positive for: Normal appearance Extremity: Positive for: Other (Mild swelling and tenderness right lateral malleolus, full range of motion right ankle with pain, nontender rate, no calf swelling or tenderness) Neurologic/Psych: Positive for: Alert, Oriented, Gait (steady) - ECG O2 Sat by Pulse Oximetry: 99 Pulse Ox Interpretation: Normal - Other Rad right ankle x-ray X-Ray: Interpreted by Me, Viewed By Me X-Ray Interpretation: no fx, no dis Medical Decision Making Medical Decision Makin57 year old with right ankle pain Plan: PO naprosyn X-ray right ankle Patient aware of x-ray results. All questions answered. Patient declined brace to affected area. He was advised to take Aleve for pain as needed and was referred to podiatry clinic for follow-up. Disposition - Clinical Impression Clinical Impression: Ankle sprain - Patient ED Disposition Is Patient to be Admitted: No Counseled Patient/Family Regarding: Studies Performed, Diagnosis, Need For Followup - Disposition Referrals: Podiatry Clinic [Outside] Disposition: Routine/Home Disposition Time: 12:17 Condition: STABLE Additional Instructions: Ice, rest and elevate affected area. Take Aleve as needed for pain. Follow-up with podiatry clinic. Call today to arrange for follow-up visit. Instructions: Ankle Sprain (DC) Forms: [employer] (Turkmen)
[2017-12-14] MEDS ORDERED: Naproxen 500 MG TAB PO STA (11:10)
[2017-12-14] MEDS ORDERED: Naproxen 500 MG TAB PO ONE (11:18)
--- NOTE | 2017-12-14 11:57 | RAD ---
PROCEDURE: Right Ankle Radiographs. HISTORY: trauma COMPARISON: None FINDINGS: BONES: No acute fracture or destructive bony lesion identified. JOINTS: Articular cortical sclerosis appreciate throughout the hindfoot joints on a [id number] basis with limited osteophyte development at the talonavicular joint. No subluxation or dislocation appreciated throughout. Ankle mortise appears intact. SOFT TISSUES: Normal. OTHER FINDINGS: None. IMPRESSION: No acute fracture or dislocation. Degenerative changes as discussed above.
== END 2017-12-14 12:22 | disposition home or self-care (01) ==
LOC: H.ER 10:04
DX: S82.92XA Unspecified fracture of left lower leg, initial encounter for closed fracture (principal); X50.9XXA Other and unspecified overexertion or strenuous movements or postures, initial encounter; Y92.89 Other specified places as the place of occurrence of the external cause; E78.00 Pure hypercholesterolemia, unspecified

== ENCOUNTER 2018-02-09 12:24 | Observation (INO) | payer OTHER ==
[2018-02-09 12:24] VITALS: BMI 35.7
[2018-02-09 14:05] LABS: BASO # 0.1 K/uL (0.0-0.2); EOS # 0.1 K/uL (0.0-0.7); EOS % 0.8 % (0.0-4.0); HEMOGLOBIN 15.1 g/dL (12.0-18.0); LYMPH # 2.2 K/uL (1.0-4.3); LYMPH % 29.8 % (20.0-40.0); MEAN CELL VOLUME 88.8 fl (80.0-94.0); MEAN CORPUSCULAR HEMOGLOBIN 31.2 pg (27.0-31.0); MEAN CORPUSCULAR HGB CONC 35.1 g/dL (33.0-37.0); MEAN PLATELET VOLUME 7.4 fl (7.2-11.7); MONO # 0.5 K/uL (0.0-0.8); NEUT # 4.5 K/uL (1.8-7.0); NEUT % 61.4 % (50.0-75.0); NRBC % 0.1 % (0.0-0.0); RBC 4.84 Mil/uL (4.40-5.90); RED CELL DISTRIBUTION WIDTH 13.3 % (11.5-14.5); WHITE BLOOD COUNT 7.3 K/uL (4.8-10.8)
[2018-02-09 14:15] LABS: ALB/GLOB RATIO 1.2 (1.0-2.1); ALBUMIN 4.1 g/dL (3.5-5.0); ALT/SGPT 107 U/L (21-72); AST/SGOT 64 U/L (17-59); BLOOD UREA NITROGEN 8 mg/dl (9-20); GFR AFRICAN-AMERICAN > 60; GFR NON-AFRICAN AMERICAN > 60
--- NOTE | 2018-02-09 14:18 | ED PDOC ---
HPI: Chest Pain Time Seen by Provider: 02/09/18 12:40 Chief Complaint (Nursing): Chest Pain Chief Complaint (Provider): chest pain History Per: Patient History/Exam Limitations: no limitations Onset/Duration Of Symptoms: Days (x1) Current Symptoms Are (Timing): Gone Now Quality: Pressure Associated Symptoms: denies: Nausea, Dyspnea Additional Complaint(s): Yobani Ribeiro is a 57 year old male, with no significant past medical history, who presents to the emergency department for evaluation of an episode of left sided chest pressure onset yesterday. Patient states yesterday while he was at the [employer] he had a sensation of pressure and tightness to the left side of his chest associated with bilateral neck pain. Patient reports pain has since resolved. 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 He denies any fever, chills, nausea, vomit, diarrhea, left arm pain, numbness, tingling or any current chest pain. No further medical complaints. PMD: [facility]. Past Medical History Reviewed: Historical Data, Nursing Documentation, Vital Signs Vital Signs: Last Vital Signs Temp 98.1 F 02/09/18 17:59 Pulse 67 02/09/18 17:59 Resp 16 02/09/18 17:59 BP 123/67 02/09/18 17:59 Pulse Ox 98 02/09/18 17:59 - Medical History PMH: Back Problems, Gall Bladder Disease (Gallstones), Hiatal Hernia, Hypercholesterolemia Denies: Chronic Kidney Disease - Surgical History Surgical History: Appendectomy, Cholecystectomy (August 2016), Hernia Repair ( inguinal) - Family History Family History: States: No Known Family Hx - Social History Ex-Smoker (has not smoked in the last 12 months): Yes Alcohol: Occasional Drugs: Denies - Home Medications Home Medications: Ambulatory Orders Medication Instructions Recorded No Known Home Med 02/09/18 - Allergies Allergies/Adverse Reactions: Allergies Allergy/AdvReac Type Severity Reaction Status Date / Time No Known Allergies Allergy Verified 09/25/17 07:48 HANNAH Risk Score for UA/NSTEMI - HANNAH Risk Score Age > 64: NO 3 or more CAD Risk Factors: NO Known CAD (Stenosis greater than 50%): NO Aspirin use in past 7 days: NO Severe Angina: NO EKG ST changes greater than 0.5mm: NO Positive Cardiac Marker: NO HANNAH Score: 0 Risk %: 5% Wells Criteria for PE - Wells Criteria for Pulmonary Embolism Clinical Signs and Symptoms of DVT: No P.E is #1 Diagnosis, or Equally Likely: No Heart Rate >100: No Immobilization at least 3 days;Surgery previous 4 weeks: No Previous, objectively diagnosed PE or DVT: No Hemoptysis: No Malignancy w/treatment within 6 months, or palliative: No Total Score: 0 Review of Systems ROS Statement: Except As Marked, All Systems Reviewed And Found Negative Constitutional: Negative for: Fever, Chills Cardiovascular: Negative for: Chest Pain (resolved), Palpitations Gastrointestinal: Negative for: Nausea, Vomiting, Diarrhea Musculoskeletal: Negative for: Arm Pain Neurological: Negative for: Weakness, Numbness Physical Exam - Reviewed Nursing Documentation Reviewed: Yes Vital Signs Reviewed: Yes - Physical Exam Appears: Positive for: Non-toxic, No Acute Distress Head Exam: Positive for: ATRAUMATIC, NORMAL INSPECTION, NORMOCEPHALIC Skin: Positive for: Normal Color, Warm, Dry Eye Exam: Positive for: Normal appearance, EOMI, PERRL Neck: Positive for: Painless ROM, Supple Cardiovascular/Chest: Positive for: Regular Rate, Rhythm. Negative for: Murmur Respiratory: Positive for: Normal Breath Sounds. Negative for: Respiratory Distress Gastrointestinal/Abdominal: Positive for: Normal Exam, Soft. Negative for: Tenderness Back: Positive for: Normal Inspection Extremity: Positive for: Normal ROM (upper and lower extremities). Negative for : Tenderness, Deformity, Swelling Neurologic/Psych: Positive for: Alert, Oriented. Negative for: Motor/Sensory Deficits - Laboratory Results Result Diagrams: 02/09/18 13:55 02/09/18 13:55 - ECG O2 Sat by Pulse Oximetry: 99 (RA) Pulse Ox Interpretation: Normal Medical Decision Making Medical Decision Making: Time: 12:56 Initial Impression: Chest pain rule out ACS, rule out pneumonia electrolyte abnormality Initial Plan: --CMP --Troponin I --CBC w/ differential --Reevaluation EKG: NSR @ 74bpm, slightly flat T wave at III and aVF 15:02 CXR FINDINGS: LUNGS: No active pulmonary disease. PLEURA: No significant pleural effusion identified. No pneumothorax apparent. CARDIOVASCULAR: Normal. OSSEOUS STRUCTURES: No significant abnormalities. VISUALIZED UPPER ABDOMEN: Normal. OTHER FINDINGS: None. IMPRESSION: No active disease. first troponin neg 16:57 Labs show elevated LFTs. Will admit to telly to r/o ACS. Paged family resident to admit pt. for chest pain ----- Scribe Attestation: Documented by Sathya Fung, acting as a scribe for Paulie Koenig MD. Provider Scribe Attestation: All medical record entries made by the Scribe were at my direction and personally dictated by me. I have reviewed the chart and agree that the record accurately reflects my personal performance of the history, physical exam, medical decision making, and the department course for this patient. I have also personally directed, reviewed, and agree with the discharge instructions and disposition. Disposition - Clinical Impression Clinical Impression: Chest pain - Patient ED Disposition Is Patient to be Admitted: Yes - Disposition Disposition Time: 16:00 Condition: STABLE
--- NOTE | 2018-02-09 15:03 | RAD ---
Date of service: 02/09/2018 HISTORY: palpiataions COMPARISON: 08/05/2017 TECHNIQUE: Chest PA and lateral FINDINGS: LUNGS: No active pulmonary disease. PLEURA: No significant pleural effusion identified. No pneumothorax apparent. CARDIOVASCULAR: Normal. OSSEOUS STRUCTURES: No significant abnormalities. VISUALIZED UPPER ABDOMEN: Normal. OTHER FINDINGS: None. IMPRESSION: No active disease.
--- NOTE | 2018-02-09 19:39 | CP.PCM.HP ---
History of Present Illness - History of Present Illness History of Present Illness: Hx taken from patient Full code PMD: NHC 57 y/o M with PMhx of cholecystectomy, fatty liver presented to ER c/o chest pain since Yesterday. As per patient pain is not related to exertion, movements , foods and is not associated with any symptoms. Denies SOB, palpitations, vomiting, nausea or radiation of the pain. He can points the location of the pain with 1 finger and it comes and goes. 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 Denies drugs. Former smoker, quit 10 y/a. ETOH occasionally. The patient was admitted to r/o ACS ER course Trop x1: NOrmal EKG: Nonspecific ST changes. Pending official report ASA 325 mg once CXR: No active disease PMHx: Gallstones SxHx: Cholecystectomy SHx: Former smoker, ETOH occasionally FHx: Unknown Allergies: NKDA Present on Admission - Present on Admission Any Indicators Present on Admission: No Review of Systems - Review of Systems All systems: reviewed and no additional remarkable complaints except (those described on HPI) Past Patient History - Infectious Disease Hx of Infectious Diseases: None - Past Medical History & Family History Past Medical History?: Yes - Past Social History Smoking Status: Former Smoker Alcohol: Occasional Drugs: Denies - CARDIAC Hx Hypercholesterolemia: Yes - PULMONARY Hx Respiratory Disorders: No - NEUROLOGICAL Hx Neurological Disorder: No - HEENT Hx HEENT Problems: No - RENAL Hx Chronic Kidney Disease: No - ENDOCRINE/METABOLIC Hx Endocrine Disorders: No - HEMATOLOGICAL/ONCOLOGICAL Hx Blood Disorders: No - INTEGUMENTARY Hx Dermatological Problems: No - MUSCULOSKELETAL/RHEUMATOLOGICAL Hx Musculoskeletal Disorders: Yes - GASTROINTESTINAL Hx Gall Bladder Disease: Yes (Gallstones) - GENITOURINARY/GYNECOLOGICAL Hx Genitourinary Disorders: No - PSYCHIATRIC Hx Psychophysiologic Disorder: No Hx Substance Use: No - SURGICAL HISTORY Hx Appendectomy: Yes Hx Cholecystectomy: Yes (August 2016) - ANESTHESIA Hx Anesthesia: Yes Hx Anesthesia Reactions: No Hx Malignant Hyperthermia: No Meds Allergies/Adverse Reactions: Allergies Allergy/AdvReac Type Severity Reaction Status Date / Time No Known Allergies Allergy Verified 09/25/17 07:48 Physical Exam - Constitutional Appears: Non-toxic, No Acute Distress - Head Exam Head Exam: ATRAUMATIC, NORMAL INSPECTION - Eye Exam Eye Exam: EOMI, PERRL - ENT Exam ENT Exam: Mucous Membranes Moist - Respiratory Exam Respiratory Exam: Clear to Auscultation Bilateral, NORMAL BREATHING PATTERN. absent: Decreased Breath Sounds, Rales, Rhonchi, Wheezes - Cardiovascular Exam Cardiovascular Exam: REGULAR RHYTHM, +S1, +S2. absent: Gallop - GI/Abdominal Exam GI & Abdominal Exam: Normal Bowel Sounds, Soft. absent: Guarding, Rigid, Tenderness - Extremities Exam Extremities exam: Positive for: full ROM. Negative for: calf tenderness, pedal edema, tenderness - Neurological Exam Neurological exam: Alert, CN II-XII Intact, Oriented x3 - Psychiatric Exam Psychiatric exam: Normal Affect, Normal Mood - Skin Skin Exam: Normal Color, Warm Results - Vital Signs Recent Vital Signs: Last Vital Signs Temp 98.1 F 02/09/18 17:59 Pulse 67 02/09/18 17:59 Resp 16 02/09/18 17:59 BP 123/67 02/09/18 17:59 Pulse Ox 99 02/09/18 18:43 - Labs Result Diagrams: 02/09/18 13:55 02/09/18 13:55 Labs: Laboratory Results - last 24 hr 02/09/18 02/09/18 13:55 13:55 WBC 7.3 RBC 4.84 Hgb 15.1 Hct 43.0 MCV 88.8 MCH 31.2 H MCHC 35.1 RDW 13.3 Plt Count 225 MPV 7.4 Neut % (Auto) 61.4 Lymph % (Auto) 29.8 Zavala % (Auto) 7.0 Eos % (Auto) 0.8 Baso % (Auto) 1.0 Neut # (Auto) 4.5 Lymph # (Auto) 2.2 Zavala # (Auto) 0.5 Eos # (Auto) 0.1 Baso # (Auto) 0.1 Sodium 142 Potassium 3.8 Chloride 103 Carbon Dioxide 25 Anion Gap 18 BUN 8 L Creatinine 0.9 Est GFR ( Amer) > 60 Est GFR (Non-Af Amer) > 60 Random Glucose 116 H Calcium 9.0 Total Bilirubin 0.7 AST 64 H D ALT 107 H D Alkaline Phosphatase 72 Troponin I < 0.0120 Total Protein 7.3 Albumin 4.1 Globulin 3.3 Albumin/Globulin Ratio 1.2 Assessment & Plan - Assessment and Plan (Free Text) Assessment: 57 y/o M with no significant PMHx admitted with CP to R/O ACS Chest pain Acute Unlikely cardiac MSK origin possible EKG at ED: Nonspecific ST changes(Pending official report) Troponin x1 normal Trops q8 x2 ordered F/U repeat EKG AM Tylenol once S/P ASA 325 mg at ED Nitro SL pRN for CP Admit to Telemetry unit for Obs Elevated ALT/AST Chronic Improved since 09/2017 Patient is obese with known Hx of Liver Steatosis Monitor Encouraged wt loss DVT prophylaxis Lovenox 40 mg HS
[2018-02-10 05:13] VITALS: RESP 18
[2018-02-10] MEDS ORDERED: Pneumococcal 23-Valent Vaccine IM ONE (06:00)
--- NOTE | 2018-02-10 07:01 | CP.PCM.PN ---
Objective - Vital Signs/Intake and Output Vital Signs (last 24 hours): Temp Pulse Resp BP Pulse Ox 97.7 F 70 18 117/78 97 02/10/18 05:13 02/10/18 05:13 02/10/18 05:13 02/10/18 05:13 02/10/18 05:13 - Medications Medications: Current Medications Enoxaparin Sodium (Lovenox) 40 mg SC HS KELSY PRN Reason: Protocol Nitroglycerin (Nitrostat Sl Tab) 0.4 mg SL Q5M PRN PRN Reason: Other - Labs Labs: 02/09/18 13:55 02/09/18 13:55
[2018-02-10 07:55] VITALS: BP 117/76; PULSE 63; TEMP 97.6; O2SAT 95
--- NOTE | 2018-02-10 10:03 | CP.PCM.DIS ---
Provider - Provider Date of Admission: 02/09/18 16:59 Attending physician: Esme Olmos MD Time Spent in preparation of Discharge (in minutes): 15 Diagnosis - Discharge Diagnosis (1) Chest pain Status: Resolved (2) Costochondritis, acute Status: Resolved Hospital Course - Lab Results Lab Results: Most Recent Lab Values WBC 7.3 K/uL (4.8-10.8) 02/09/18 13:55 RBC 4.84 Mil/uL (4.40-5.90) 02/09/18 13:55 Hgb 15.1 g/dL (12.0-18.0) 02/09/18 13:55 Hct 43.0 % (35.0-51.0) 02/09/18 13:55 MCV 88.8 fl (80.0-94.0) 02/09/18 13:55 MCH 31.2 pg (27.0-31.0) H 02/09/18 13:55 MCHC 35.1 g/dL (33.0-37.0) 02/09/18 13:55 RDW 13.3 % (11.5-14.5) 02/09/18 13:55 Plt Count 225 K/uL (130-400) 02/09/18 13:55 MPV 7.4 fl (7.2-11.7) 02/09/18 13:55 Neut % (Auto) 61.4 % (50.0-75.0) 02/09/18 13:55 Lymph % (Auto) 29.8 % (20.0-40.0) 02/09/18 13:55 Ramsey % (Auto) 7.0 % (0.0-10.0) 02/09/18 13:55 Eos % (Auto) 0.8 % (0.0-4.0) 02/09/18 13:55 Baso % (Auto) 1.0 % (0.0-2.0) 02/09/18 13:55 Neut # (Auto) 4.5 K/uL (1.8-7.0) 02/09/18 13:55 Lymph # (Auto) 2.2 K/uL (1.0-4.3) 02/09/18 13:55 Ramsey # (Auto) 0.5 K/uL (0.0-0.8) 02/09/18 13:55 Eos # (Auto) 0.1 K/uL (0.0-0.7) 02/09/18 13:55 Baso # (Auto) 0.1 K/uL (0.0-0.2) 02/09/18 13:55 Sodium 142 mmol/l (132-148) 02/09/18 13:55 Potassium 3.8 MMOL/L (3.6-5.0) 02/09/18 13:55 Chloride 103 mmol/L (98-107) 02/09/18 13:55 Carbon Dioxide 25 mmol/L (22-30) 02/09/18 13:55 Anion Gap 18 (10-20) 02/09/18 13:55 BUN 8 mg/dl (9-20) L 02/09/18 13:55 Creatinine 0.9 mg/dl (0.8-1.5) 02/09/18 13:55 Est GFR ( Amer) > 60 02/09/18 13:55 Est GFR (Non-Af Amer) > 60 02/09/18 13:55 Random Glucose 116 mg/dL (75-110) H 02/09/18 13:55 Calcium 9.0 mg/dL (8.4-10.2) 02/09/18 13:55 Total Bilirubin 0.7 mg/dl (0.2-1.3) 02/09/18 13:55 AST 64 U/L (17-59) H D 02/09/18 13:55 ALT 107 U/L (21-72) H D 02/09/18 13:55 Alkaline Phosphatase 72 U/L (38-126) 02/09/18 13:55 Troponin I < 0.0120 ng/mL (0.00-0.120) 02/10/18 04:20 Total Protein 7.3 G/DL (6.3-8.2) 02/09/18 13:55 Albumin 4.1 g/dL (3.5-5.0) 02/09/18 13:55 Globulin 3.3 gm/dL (2.2-3.9) 02/09/18 13:55 Albumin/Globulin Ratio 1.2 (1.0-2.1) 02/09/18 13:55 - Hospital Course Hospital Course: Pt is a 57 yo male with PMH of Choecystectomy, fatty liver presented to ER with chief complain of chest pain. Pt was admitted to evaluate for ACS. ACS treatment was initiated, EKG was done which was NSR no ST changes , lab were reviewed, ACS is unlikely. Pt improved, denies chest pain at moment pt also denies fever, SOB abdominal pain, diarrhea, constipation, dysuria, polyuria. Pt was educated about ACS vs chostochondritis sign and symptoms, and advised to F/U with PCP in 2 weeks Pt is cleard by medicine and can be discharged home Discharge Exam - Head Exam Head Exam: ATRAUMATIC, NORMAL INSPECTION - Eye Exam Eye Exam: EOMI, Normal appearance, PERRL Pupil Exam: NORMAL ACCOMODATION, PERRL - ENT Exam ENT Exam: Normal Exam - Neck Exam Neck exam: Full Rom - Respiratory Exam Respiratory Exam: Clear to PA & Lateral, NORMAL BREATHING PATTERN, UNREMARKABLE. absent: Chest Wall Tenderness - Cardiovascular Exam Cardiovascular Exam: REGULAR RHYTHM, +S1, +S2. absent: Bradycardia, Tachycardia - GI/Abdominal Exam GI & Abdominal Exam: Normal Bowel Sounds, Unremarkable - Extremities Exam Extremities exam: full ROM, normal inspection Additional comments: No calf tenderness - Back Exam Back exam: absent: CVA tenderness (L), CVA tenderness (R) - Neurological Exam Neurological exam: Alert, Normal Gait, Oriented x3 - Psychiatric Exam Psychiatric exam: Normal Affect, Normal Mood - Skin Skin Exam: Dry, Intact, Normal Color, Warm Discharge Plan - Follow Up Plan Condition: STABLE Disposition: HOME/ ROUTINE Patient education suggested?: Yes Instructions: Chest Pain, Chest Pain (DC), Chest Pain That Is Not Caused by the Heart (DC)
[2018-02-10] MEDS ORDERED: Enoxaparin 40 mg Syringe SC SCH (22:00)
--- NOTE | 2018-02-14 10:38 | CARD ---
APPROVED REPORT Date of service: 02/09/2018 EKG Measurement Heart [id number] <Conclusion> Normal sinus rhythm Nonspecific ST abnormality Abnormal ECG
== END 2018-02-10 10:45 | disposition home or self-care (01) ==
LOC: H.ER 12:24 → H.ERHOLD 16:59 → H.TEL 20:46
PROVIDERS: ADMIT Family Medicine Geriatric Medicine; ATTEND Family Medicine Geriatric Medicine
DX: M94.0 Chondrocostal junction syndrome [Tietze] (principal); R07.9 Chest pain, unspecified; E78.00 Pure hypercholesterolemia, unspecified; K76.0 Fatty (change of) liver, not elsewhere classified; Z79.82 Long term (current) use of aspirin; Z87.891 Personal history of nicotine dependence; Z90.49 Acquired absence of other specified parts of digestive tract; K44.9 Diaphragmatic hernia without obstruction or gangrene; K80.20 Calculus of gallbladder without cholecystitis without obstruction; M54.2 Cervicalgia; R79.89 Other specified abnormal findings of blood chemistry; E66.9 Obesity, unspecified; Z23 Encounter for immunization
CPT/HCPCS: 36415; 71046; 80053; 84484; 85025; 90471; 90732; 99285; G0378

== ENCOUNTER 2018-05-08 23:29 | Emergency (ER) | payer OTHER ==
[2018-05-08 23:29] VITALS: BMI 35.7
--- NOTE | 2018-05-09 00:42 | ED PDOC ---
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 Patient states he has been having more frequent bowel movements, normal consistency, but notices bright red blood with them. Patient states sometimes he feels he has to have a bowel movement or pass gas and just blood comes out. 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 Denies fever, nausea/vomiting, chest pain, shortness of breath, palpitations, urinary symptoms. Patient admits to similar symptoms last year, had a normal colonoscopy and was told to have it repeated in 5 years. Past Medical History Reviewed: Historical Data, Nursing Documentation, Vital Signs Vital Signs: Last Vital Signs Temp 98 F 05/08/18 23:46 Pulse 75 05/08/18 23:46 Resp 16 05/08/18 23:46 BP 119/81 05/08/18 23:46 Pulse Ox 98 05/08/18 23:46 - Medical History PMH: Back Problems, Gall Bladder Disease (Gallstones), Hiatal Hernia, Hypercholesterolemia Denies: Chronic Kidney Disease - Surgical History Surgical History: Appendectomy, Cholecystectomy (August 2016), Hernia Repair (inguinal) - Family History Family History: States: No Known Family Hx - Home Medications Home Medications: Ambulatory Orders Medication Instructions Recorded No Known Home Med 02/09/18 - Allergies Allergies/Adverse Reactions: Allergies Allergy/AdvReac Type Severity Reaction Status Date / Time No Known Allergies Allergy Verified 05/08/18 23:43 Review of Systems ROS Statement: Except As Marked, All Systems Reviewed And Found Negative Gastrointestinal: Positive for: Abdominal Pain, Hematochezia Physical Exam - Reviewed Nursing Documentation Reviewed: Yes Vital Signs Reviewed: Yes - Physical Exam Appears: Positive for: Well, Non-toxic, No Acute Distress Head Exam: Positive for: ATRAUMATIC, NORMAL INSPECTION, NORMOCEPHALIC Skin: Positive for: Normal Color Eye Exam: Positive for: Normal appearance ENT: Positive for: Normal ENT Inspection Cardiovascular/Chest: Positive for: Regular Rate, Rhythm Respiratory: Positive for: Normal Breath Sounds Gastrointestinal/Abdominal: Positive for: Bowel Sounds, Soft, Tenderness (RUQ, RLQ, epigastric) Back: Positive for: Normal Inspection Rectal: Positive for: Blood Streaked Stool, Other (exam meal room hand Shannon Gomez RN). Negative for: Hemorrhoids Extremity: Positive for: Normal ROM Neurologic/Psych: Positive for: Alert, Oriented (x3) - Laboratory Results Result Diagrams: 05/09/18 01:27 05/09/18 01:27 - ECG O2 Sat by Pulse Oximetry: 98 - Progress ED Course And Treament: labs, CT abd/pelvis USArad impression: Colonic diverticulosis. Mild apparent thickening of the proximal aspect of the signmoid colon. Underdistention, spasm, versus mild colitis Patient educated on findings, discharged with instructions to follow up with GI for repeat colonoscopy Return precautions given Disposition - Clinical Impression Clinical Impression: Bloody stool, Abdominal pain - Patient ED Disposition Is Patient to be Admitted: No Counseled Patient/Family Regarding: Studies Performed, Diagnosis, Need For Followup - Disposition Referrals: Siddhartha Lancaster MD, PhD [Staff Provider] - Disposition: Routine/Home Disposition Time: 04:33 Condition: IMPROVED Instructions: Bloody Stools, Acute Abdomen (Belly Pain), Adult (DC) Print Language: SWEDISH
[2018-05-09] MEDS ORDERED: Iohexol 240 (50 ml) ONE (01:16)
[2018-05-09] MEDS: Iohexol 240 (50 ml) PO ONE (01:22)
[2018-05-09 01:30] LABS: BASO # 0.1 K/uL (0.0-0.2); BASO % 0.9 % (0.0-2.0); EOS # 0.1 K/uL (0.0-0.7); HEMOGLOBIN 14.2 g/dL (12.0-18.0); LYMPH # 2.6 K/uL (1.0-4.3); LYMPH % 32.1 % (20.0-40.0); MEAN CELL VOLUME 88.4 fl (80.0-94.0); MEAN PLATELET VOLUME 7.4 fl (7.2-11.7); MONO # 0.6 K/uL (0.0-0.8); NEUT # 4.9 K/uL (1.8-7.0); RBC 4.59 Mil/uL (4.40-5.90); RED CELL DISTRIBUTION WIDTH 13.3 % (11.5-14.5); WHITE BLOOD COUNT 8.2 K/uL (4.8-10.8)
[2018-05-09 01:44] LABS: ALBUMIN 3.7 g/dL (3.5-5.0); ALT/SGPT 71 U/L (21-72); AST/SGOT 42 U/L (17-59); BLOOD UREA NITROGEN 10 mg/dl (9-20); CALCIUM 8.8 mg/dL (8.4-10.2); GFR NON-AFRICAN AMERICAN > 60; LIPASE 81 U/L (23-300)
[2018-05-09] MEDS ORDERED: Iohexol 300 100 ML IJ ONE (02:56)
[2018-05-09] MEDS ORDERED: Sodium Chloride 0.9% 50 ML IV ONE (02:56)
[2018-05-09 04:55] VITALS: BP 112/72; PULSE 61; RESP 14; TEMP 98.2; O2SAT 96
--- NOTE | 2018-05-09 13:44 | CT ---
Date of service: 05/09/2018 PROCEDURE: CT Abdomen and Pelvis with contrast HISTORY: abd pain, bloody stools COMPARISON: None. TECHNIQUE: Intravenous contrast dose: 95 cc Omnipaque 300. Radiation dose: Total exam DLP = 910.06 mGy-cm. This CT exam was performed using one or more of the following dose reduction techniques: Automated exposure control, adjustment of the mA and/or kV according to patient size, and/or use of iterative reconstruction technique. FINDINGS: LOWER THORAX: Unremarkable. LIVER: Hepatic steatosis. No focal masses. No intrahepatic bile duct dilatation or perihepatic ascites. GALLBLADDER AND BILE DUCTS: Status post cholecystectomy. No abnormality is seen in the gallbladder fossa. PANCREAS: Unremarkable. No gross lesion or ductal dilatation. SPLEEN: Unremarkable. ADRENALS: Unremarkable. No mass. KIDNEYS AND URETERS: Unremarkable. No hydronephrosis. No solid mass. VASCULATURE: Unremarkable. No aortic aneurysm. BOWEL: Mild inflammatory change primarily affecting portions of the ascending colon, descending colon and sigmoid. Diverticulosis without an acute inflammatory component or other associated pathologic process. APPENDIX: No abnormalities to suggest acute appendicitis. No right lower quadrant inflammatory processes identified. PERITONEUM: Unremarkable. No free fluid. No free air. LYMPH NODES: Unremarkable. No enlarged lymph nodes. BLADDER: Unremarkable. REPRODUCTIVE: Unremarkable. BONES: No acute fracture. OTHER FINDINGS: None. IMPRESSION: Areas of inflammatory changes affecting ascending colon. Additional less pronounced changes in the sigmoid region. These represent new/acute findings compared to the prior CT scan 03/14/2017. Concordant results (preliminary interpretation) provided by [employer]. Procedure Completed: 03:12. Preliminary Report: Dictated and Authenticated: 04:18. Final Interpretation: 13:40.
== END 2018-05-09 04:50 | disposition home or self-care (01) ==
LOC: H.ER 23:29
DX: K92.1 Melena (principal); R10.9 Unspecified abdominal pain; E78.00 Pure hypercholesterolemia, unspecified
CPT/HCPCS: 74177; 80053; 83690; 85025; 99283; G0328; Q9966; Q9967